=== PATIENT | male | born 1975 | race Caucasian/White ===

== ENCOUNTER 2020-10-28 01:27 | Emergency (ER) | payer MEDICAID ==
[~2020-10-28] VITALS: Ht 180.3 cm; Wt 106.8 kg
[2020-10-28 01:32] VITALS: TEMP 97.1
[2020-10-28] MEDS ORDERED: BREO ELLIPTA 21 EACH IH (01:35)
[2020-10-28] MEDS ORDERED: ZYRTEC 10MG10 MG PO (01:36)
[2020-10-28 02:00] LABS: BASO # 0.1 (0.0-0.2); BASO % 0.3 % (0.0-2.0); EOS # 0.2 (0.0-0.7); EOS % 1.3 % (0-4.0); GRAN # 10.4 (1.4-6.5); HEMATOCRIT 51.5 % (42.0-52.0); HEMOGLOBIN 17.3 g/dl (13.5-18.0); LYMPH # 2.4 (1.2-3.4); LYMPH % 16.7 % (20.0-51.0); MEAN CELL VOLUME 89 fl (80.0-100.0); MEAN CORPUSCULAR HEMOGLOBIN 30 pg (27.0-31.0); MEAN CORPUSCULAR HGB CONC 34 g/dl (33.0-37.0); MEAN PLATELET VOLUME 10.2 fl (7.4-10.4); MONO # 1.3 (0.1-0.6); MONO % 9.1 % (1.7-9.3); PLATELET COUNT 260 K/mm3 (130-400); RED BLOOD COUNT 5.81 M/mm3 (4.20-5.60); REDCELL DISTRIBUTION WIDTH-CV 12.7 % (11.5-14.5)
[2020-10-28 02:11] LABS: ALANINE AMINOTRANSFERASE 52 U/L (4-49); ALBUMIN 4.5 gm/dL (3.5-5.0); ALKALINE PHOSPHATASE 114 U/L (50-136); ANION GAP 11 mmol/L (7-16); AST,SGOT 36 U/L (15-37); BLOOD UREA NITROGEN 19 mg/dL (9-20); CALCIUM 9.2 mg/dL (8.4-10.2); CARBON DIOXIDE 24 mmol/L (22-30); CHLORIDE 104 mmol/L (98-107); CREATINE KINASE 118 U/L (55-170); CREATININE, serum 1.22 (0.66-1.25); GLUCOSE 124 mg/dL (74-106); SODIUM 139 mmol/L (137-145); TOTAL PROTEIN 7.9 gm/dL (6.4-8.2)
[2020-10-28 02:23] LABS: TROPONIN-I < 0.012 ng/mL (0.000-0.035)
[2020-10-28 05:29] VITALS: BP 126/91; PULSE 73
== END 2020-10-28 05:34 | disposition home or self-care (01) ==
LOC: COL.ER 01:27
PROVIDERS: Emergency Medicine
DX: R07.89 Other chest pain (principal); I10 Essential (primary) hypertension; J45.909 Unspecified asthma, uncomplicated; F17.210 Nicotine dependence, cigarettes, uncomplicated
CPT/HCPCS: J7030

== ENCOUNTER 2021-05-20 20:40 | Emergency (ER) | payer MEDICAID ==
[~2021-05-20] VITALS: Ht 175.3 cm; Wt 106.8 kg
[~2021-05-20 20:40] MED LIST: BREO ELLIPTA 21 EACH IH; ZYRTEC 10MG10 MG PO
[2021-05-20 22:09] LABS: BASO # 0.1 (0.0-0.2); BASO % 0.7 % (0.0-2.0); EOS # 0.3 (0.0-0.7); EOS % 2.6 % (0-4.0); GRAN # 8.7 (1.4-6.5); GRAN % 72.1 % (42.2-75.2); HEMATOCRIT 48.7 % (42.0-52.0); HEMOGLOBIN 16.7 g/dl (13.5-18.0); LYMPH # 1.7 (1.2-3.4); LYMPH % 14.2 % (20.0-51.0); MEAN CELL VOLUME 88 fl (80.0-100.0); MEAN CORPUSCULAR HEMOGLOBIN 30 pg (27.0-31.0); MEAN CORPUSCULAR HGB CONC 34 g/dl (33.0-37.0); MEAN PLATELET VOLUME 9.8 fl (7.4-10.4); MONO # 1.2 (0.1-0.6); MONO % 9.8 % (1.7-9.3); PLATELET COUNT 250 K/mm3 (130-400); RED BLOOD COUNT 5.55 M/mm3 (4.20-5.60); REDCELL DISTRIBUTION WIDTH-CV 12.6 % (11.5-14.5)
[2021-05-20 22:24] LABS: ALBUMIN 4.4 gm/dL (3.5-5.0); BILIRUBIN,TOTAL 0.5 mg/dL (0.0-1.0); C-REACTIVE PROTEIN 4.4 mg/dL (0.0-0.9); CALCIUM 9.1 mg/dL (8.4-10.2); CREATININE, serum 1.23 (0.66-1.25); POTASSIUM 4.2 mmol/L (3.4-5.0); TOTAL PROTEIN 7.6 gm/dL (6.4-8.2)
[2021-05-21] MEDS ORDERED: PREDNISONE20 MG PO (00:23)
[2021-05-21 00:55] VITALS: BP 128/83; PULSE 88; TEMP 98.7
== END 2021-05-21 00:55 | disposition home or self-care (01) ==
LOC: COL.ER 20:40
PROVIDERS: Nurse Practitioner
DX: J20.9 Acute bronchitis, unspecified (principal); J45.909 Unspecified asthma, uncomplicated; I10 Essential (primary) hypertension; F17.210 Nicotine dependence, cigarettes, uncomplicated; Z20.822 Contact with and (suspected) exposure to COVID-19; Z79.899 Other long term (current) drug therapy
CPT/HCPCS: J7030; J7512

== ENCOUNTER 2021-08-25 19:04 | Emergency (ER) | payer BC, MEDICAID ==
[~2021-08-25] VITALS: Ht 177.8 cm; Wt 94.5 kg
[~2021-08-25 19:04] MED LIST changes: +PREDNISONE20 MG PO
[2021-08-25 19:56] LABS: BASO # 0.1 K/mm3 (0.0-0.2); BASO % 0.5 % (0.0-2.0); EOS # 0.1 K/mm3 (0.0-0.7); EOS % 0.9 % (0.0-4.0); GRAN # 9.9 K/mm3 (1.4-6.5); GRAN % 80.4 % (42.2-75.2); HEMATOCRIT 48.2 % (42.0-52.0); HEMOGLOBIN 16.3 g/dl (13.5-18.0); LYMPH # 1.4 K/mm3 (1.2-3.4); LYMPH % 11.7 % (20.0-51.0); MEAN CELL VOLUME 87 fl (80.0-100.0); MEAN CORPUSCULAR HEMOGLOBIN 30 pg (27-31); MEAN CORPUSCULAR HGB CONC 34 g/dl (33.0-37.0); MEAN PLATELET VOLUME 10.1 fl (7.4-10.4); MONO # 0.7 K/mm3 (0.1-0.6); PLATELET COUNT 291 K/mm3 (130-400); RED BLOOD COUNT 5.53 M/mm3 (4.20-5.60); REDCELL DISTRIBUTION WIDTH-CV 12.6 % (11.5-14.5)
[2021-08-25 20:26] LABS: BILIRUBIN,TOTAL 0.6 mg/dL (0.2-1.2); C-REACTIVE PROTEIN 1.22 mg/dL (0.00-0.50); CALCIUM 9.1 mg/dL (8.4-10.2); CREATININE, serum 1.18 mg/dL (0.72-1.25); POTASSIUM 4.8 mmol/L (3.5-4.5); TOTAL PROTEIN 7.7 gm/dL (6.2-8.1)
[2021-08-25 20:30] LABS: COLLECTION METHOD CLEAN CATCH
[2021-08-25 20:36] LABS: MUCOUS Present (NOT PRESENT); PH 6 (5-8); SQUAMOUS EPITHELIAL None Seen /hpf (0-10); URINE APPEARANCE Clear (CLEAR/HAZY); URINE BACTERIA None Seen (NONE SEEN); URINE BILIRUBIN Negative (NEGATIVE); URINE BLOOD Negative (NEGATIVE); URINE COLOR Yellow (YELLOW); URINE GLUCOSE Negative (NEGATIVE); URINE KETONE Negative (NEGATIVE); URINE LEUKOCYTE ESTERASE Negative (NEGATIVE); URINE NITRATE Negative (NEGATIVE); URINE PROTEIN(semi-quant) Negative (NEGATIVE); URINE RBC 0-2 /hpf (0-2); URINE UROBILINOGEN Negative (NEGATIVE)
[2021-08-25 22:34] VITALS: BP 136/67; PULSE 87; TEMP 98.4
[2021-08-26] MEDS ORDERED: ZOFRAN 4MG T4 MG/TAB PO (17:21)
[2021-08-26] MEDS ORDERED: PRINIVIL20 MG PO (17:21)
[2021-08-26] MEDS ORDERED: AMITRIPTYLINE H25 M1 PO (17:21)
== END 2021-08-25 22:37 | disposition home or self-care (01) ==
LOC: COL.ER 19:04
PROVIDERS: Nurse Practitioner
DX: R10.9 Unspecified abdominal pain (principal); R11.2 Nausea with vomiting, unspecified; I10 Essential (primary) hypertension; J45.909 Unspecified asthma, uncomplicated; F17.210 Nicotine dependence, cigarettes, uncomplicated; Z79.52 Long term (current) use of systemic steroids; Z79.51 Long term (current) use of inhaled steroids
CPT/HCPCS: J1170; J1885; J2405; J7030; Q9967

== ENCOUNTER 2021-08-26 17:10 | Emergency (ER) | payer BC, MEDICAID ==
[~2021-08-26] VITALS: Ht 177.8 cm; Wt 94.5 kg
[2021-08-26 17:16] VITALS: TEMP 98.2
[2021-08-26] MEDS ORDERED: PRINIVIL20 MG PO (17:21)
[2021-08-26] MEDS ORDERED: AMITRIPTYLINE H25 M1 PO (17:21)
[2021-08-26] MEDS ORDERED: ZOFRAN 4MG T4 MG/TAB PO (17:21)
[2021-08-26 17:53] LABS: BASO # 0.1 K/mm3 (0.0-0.2); BASO % 0.6 % (0.0-2.0); EOS # 0.2 K/mm3 (0.0-0.7); EOS % 1.7 % (0.0-4.0); GRAN # 7.7 K/mm3 (1.4-6.5); GRAN % 70.6 % (42.2-75.2); HEMATOCRIT 48.1 % (42.0-52.0); HEMOGLOBIN 15.8 g/dl (13.5-18.0); LYMPH # 2.1 K/mm3 (1.2-3.4); MEAN CELL VOLUME 90 fl (80.0-100.0); MEAN CORPUSCULAR HEMOGLOBIN 30 pg (27-31); MEAN CORPUSCULAR HGB CONC 33 g/dl (33.0-37.0); MONO # 0.8 K/mm3 (0.1-0.6); MONO % 7.7 % (1.7-9.3); PLATELET COUNT 306 K/mm3 (130-400); RED BLOOD COUNT 5.35 M/mm3 (4.20-5.60); REDCELL DISTRIBUTION WIDTH-CV 12.7 % (11.5-14.5)
[2021-08-26 18:06] LABS: ALBUMIN 3.9 gm/dL (3.5-5.0); BILIRUBIN,TOTAL 0.5 mg/dL (0.2-1.2); C-REACTIVE PROTEIN 1.04 mg/dL (0.00-0.50); CALCIUM 8.5 mg/dL (8.4-10.2); CREATININE, serum 1.14 mg/dL (0.72-1.25); POTASSIUM 3.9 mmol/L (3.5-4.5)
[2021-08-26 18:25] LABS: COLLECTION METHOD CLEAN CATCH
[2021-08-26 18:30] LABS: MUCOUS Present (NOT PRESENT); PH 6 (5-8); SQUAMOUS EPITHELIAL None Seen /hpf (0-10); URINE APPEARANCE Clear (CLEAR/HAZY); URINE BACTERIA None Seen (NONE SEEN); URINE BILIRUBIN Negative (NEGATIVE); URINE BLOOD 1+ (NEGATIVE); URINE COLOR Yellow (YELLOW); URINE GLUCOSE Negative (NEGATIVE); URINE KETONE Negative (NEGATIVE); URINE LEUKOCYTE ESTERASE Negative (NEGATIVE); URINE NITRATE Negative (NEGATIVE); URINE PROTEIN(semi-quant) Negative (NEGATIVE); URINE RBC 0-2 /hpf (0-2); URINE UROBILINOGEN Negative (NEGATIVE)
[2021-08-26 19:44] VITALS: BP 154/109; PULSE 71
== END 2021-08-26 19:44 | disposition home or self-care (01) ==
LOC: COL.ER 17:10
PROVIDERS: Physician Assistant
DX: R10.11 Right upper quadrant pain (principal); J45.909 Unspecified asthma, uncomplicated; I10 Essential (primary) hypertension; F41.9 Anxiety disorder, unspecified; G43.909 Migraine, unspecified, not intractable, without status migrainosus; F17.210 Nicotine dependence, cigarettes, uncomplicated; Z79.899 Other long term (current) drug therapy; Z79.51 Long term (current) use of inhaled steroids
CPT/HCPCS: J1885; J2270; J7030

== ENCOUNTER → 2021-09-02 | Outpatient (CLI) | payer BC, MEDICAID ==
[~2021-09-02] MED LIST changes: +AMITRIPTYLINE H25 M1 PO; +PRINIVIL20 MG PO; +ZOFRAN 4MG T4 MG/TAB PO
== END ==
LOC: COL.RAD 09:03
DX: R10.11 Right upper quadrant pain (principal)

== ENCOUNTER 2022-12-30 01:31 | Emergency (ER) | payer BC, MEDICAID ==
[~2022-12-30] VITALS: Ht 177.8 cm; Wt 104.5 kg
[2022-12-30 01:34] VITALS: BP 146/94; TEMP 97.7
[2022-12-30] MEDS ORDERED: NORCO 325 MG-51 TAB PO (02:10)
[2022-12-30] MEDS ORDERED: AMOXICILLIN 50500 MG PO (02:10)
[2022-12-30 02:18] VITALS: PULSE 80
== END 2022-12-30 02:18 | disposition home or self-care (01) ==
LOC: COL.ER 01:31
DX: K02.9 Dental caries, unspecified (principal); F17.200 Nicotine dependence, unspecified, uncomplicated; Z28.310 Unvaccinated for COVID-19